=== PATIENT | male | born 2000 | race Caucasian/White ===

== ENCOUNTER 2021-12-02 00:46 | Emergency (ER) | payer OTHER, SELFPAY ==
[2021-12-02] VITALS (16 sets, daily range): BP systolic 122–145; BP diastolic 59–93; PULSE 65–104; RESP 16–21; TEMP 36.7; O2SAT 78–99; BMI 19.5
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
[2021-12-02] MEDS: oxyCODONE-APAP 5-325 mg Tablet 2 TAB PO (01:22)
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
--- NOTE | 2021-12-02 02:59 | XRR_ITS ---
PROCEDURE INFORMATION: Exam: XR Right Foot Exam date and time: 12/02/2021 3:03 AM Age: 21 years old Clinical indication: Pain; Foot; Right; Patient HX: Check S/P reduction of RT 2nd metatarsal dislocation. ; Additional info: Post reduc TECHNIQUE: Imaging protocol: XR Right foot. Views: 1 or 2 views. COMPARISON: CR (LOW EXM, ) 12/02/2021 1:08 AM FINDINGS: Bones/joints: Previously noted dislocation at 2nd MTP joint has been reduced to anatomic alignment. Displacement of 3rd metatarsal fracture also appears reduced to near anatomic alignment. Fracture at 1st metatarsal and 4th metatarsal are unchanged in position/alignment. Soft tissues: Soft tissue swelling noted XR/XR foot RT 2V [id number] IMPRESSION: Postreduction imaging
[2021-12-02] MEDS: midazolam 1 mg/mL INJ 2 mL IVP (03:00)
[2021-12-02] MEDS: morphine 4 mg/mL SDV 1 mL IVP (04:46)
--- NOTE | 2021-12-03 08:25 | DCPLANNER ---
Addendum entered by Xochilt Wynne 12/13/21 13:20: base manager was told that clinic has tried to contact patient several times left a voicemail for patient to call clinic. No appointment at this time. Original Note: base manager had message to schedule a follow up appointment for patient with ortho. base manager sent patients information to the front office staff at ortho. Patients information will be printed and reviewed. Clinic will call patient with appointment information.
== END 2021-12-02 05:00 | disposition home or self-care (01) ==
PROVIDERS: Emergency Provider Emergency Medicine
DX: S93.124A Dislocation of metatarsophalangeal joint of right lesser toe(s), initial encounter (principal); S92.311A Displaced fracture of first metatarsal bone, right foot, initial encounter for closed fracture; S92.331A Displaced fracture of third metatarsal bone, right foot, initial encounter for closed fracture; S92.341A Displaced fracture of fourth metatarsal bone, right foot, initial encounter for closed fracture; V89.2XXA Person injured in unspecified motor-vehicle accident, traffic, initial encounter
CPT/HCPCS: 28630; 73620; 73630; 96374; 99152; 99284; E0114; J2250; J2270; J3490